=== PATIENT | female | born 1945 | race Caucasian/White ===

== ENCOUNTER 2018-03-26 10:40 | Outpatient (CLI) | payer MEDICARE, SELFPAY ==
[2018-03-26 11:08] LABS: Bilirubin Negative (Negative); Blood Trace-intact (Negative); Clarity Clear; Glucose Negative (Negative); Ketones Negative (Negative); Leukocyte Esterase Trace (Negative); Nitrite Negative (Negative); Urobilinogen 0.2 EU/dL (Up TO 0.2)
[2018-03-26 11:20] LABS: Bacteria Few HPF (Negative); Casts Negative LPF (Negative); Crystals Negative HPF (Negative); Epithelial Cells Few HPF (Negative); Mucus Negative (Negative); RBC 0-2 (0-2)
[2018-03-26 11:21] LABS: C & S Indicated? Yes
[2018-03-26 12:51] LABS: Anion Gap 7.8 mmol/L (3-11); BUN 10 mg/dL (7-18); CO2 31.2 mmol/L (21.0-32.0); CREATININE 0.71 mg/dL (0.55-1.02); Chloride 102 mmol/L (98-107); Potassium 3.5 mmol/L (3.5-5.1); Sodium 141 mmol/L (136-145)
== END 2018-03-26 11:00 ==
PROVIDERS: PCP Nurse Practitioner; Visit Provider General Practice
DX: I10 Essential (primary) hypertension (principal); R10.31 Right lower quadrant pain
CPT/HCPCS: 36415; 80051; 84520; 87077; 81003; 81015; 82565; 87086; 87186

== ENCOUNTER 2018-06-08 11:56 | Outpatient (CLI) | payer MEDICARE, SELFPAY ==
[2018-06-08 12:17] LABS: Bilirubin Negative (Negative); Blood Trace-intact (Negative); Clarity Clear; Glucose Negative (Negative); Ketones Negative (Negative); Leukocyte Esterase Trace (Negative); Nitrite Negative (Negative); Urobilinogen 0.2 EU/dL (Up TO 0.2)
[2018-06-08 12:34] LABS: Bacteria Few HPF (Negative); C & S Indicated? Yes; Casts Negative LPF (Negative); Crystals Negative HPF (Negative); Epithelial Cells Rare HPF (Negative); Mucus Negative (Negative)
== END 2018-06-08 12:16 ==
PROVIDERS: PCP Nurse Practitioner; Visit Provider General Practice
DX: R10.31 Right lower quadrant pain (principal); R31.9 Hematuria, unspecified
CPT/HCPCS: 87077; 71046; 71100; 81003; 81015; 87086; 87186

== ENCOUNTER 2018-06-08 11:58 | Outpatient (CLI) | payer MEDICARE, SELFPAY ==
--- NOTE | 2018-06-08 12:28 | DI.RAD_ITS ---
SYMPTOMS/DIAGNOSIS: TENDER RIGHT 12TH RIB PA AND LATERAL CHEST AND RIGHT RIBS: Comparison is made with chest x-ray dated December,. The heart size is normal. The aorta is tortuous, unchanged. The lungs appear clear. No pneumothorax is seen. A marker was placed over the lower right ribs in the area of the patient's pain. No rib fractures are identified. There are no thoracic compression fractures. A right shoulder prosthesis is again noted. IMPRESSION: No evidence of rib fracture or other acute abnormality.
== END 2018-06-08 12:18 ==
PROVIDERS: PCP Nurse Practitioner; Visit Provider General Practice
DX: R07.81 Pleurodynia (principal); Z96.611 Presence of right artificial shoulder joint
CPT/HCPCS: 71046; 71100

== ENCOUNTER 2018-08-06 12:15 | Outpatient (CLI) | payer MEDICARE, SELFPAY ==
--- NOTE | 2018-08-06 12:15 | DI.RAD_ITS ---
SYMPTOMS/DIAGNOSIS: PAIN RIGHT HIP AND AP PELVIS: The right hip is well maintained. The joint space is unremarkable. The bones are intact and normally mineralized. The soft tissues are unremarkable. IMPRESSION: Negative right hip.
== END 2018-08-06 12:35 ==
PROVIDERS: PCP Nurse Practitioner; Visit Provider General Practice
DX: M25.551 Pain in right hip (principal); R10.2 Pelvic and perineal pain
CPT/HCPCS: 73502

== ENCOUNTER 2018-11-08 17:27 | Outpatient (REF) | payer MEDICARE, SELFPAY ==
--- NOTE | 2018-11-08 14:10 | PAPFT_PTH ---
PATIENT: Mirna Maldonado LOC: [facility] U#:[id number] AGE/SX: 73/F ROOM: RE11/08/[address]: Ngoc Wiseman NP : [id number] BED: DIS: 11/08/2018 SPEC #: [id number] RECD: 11/08/18 18:12 STATUS: KAYLEE RECaesar #: [id number] TORRES: 11/08/18 14:[address]: Ngoc Wiseman NP DEPT: [facility] Cytology RECD BY: Shahida Manzanares ENTERED: 11/08/18 18:13 SP TYPE: PAPFT OTHR DR: Lore Webster Tissues: 1 - CX/ENDOCX FOR PAP SMEARS Procedures: PAP THIN PREP/UVM Screening HPV DNA PROBE Comments: [id number]
== END 2018-11-08 17:47 ==
LOC: LBN 17:27
PROVIDERS: PCP Nurse Practitioner; Visit Provider Nurse Practitioner Women's Health
DX: Z12.4 Encounter for screening for malignant neoplasm of cervix (principal)
CPT/HCPCS: 88142; 87624

== ENCOUNTER 2019-01-04 10:26 | Outpatient (CLI) | payer MEDICARE, SELFPAY ==
[2019-01-04 11:00] LABS: Bilirubin Negative (Negative); Blood Trace-intact (Negative); Clarity Clear (Clear); Glucose Negative (Negative); Ketones Negative (Negative); Leukocyte Esterase Negative (Negative); Nitrite Negative (Negative); Specific Gravity <= 1.005 (1.005-1.025); Urobilinogen 0.2 EU/dL (Up TO 0.2)
[2019-01-04 11:14] LABS: Bacteria Rare HPF (Negative); C & S Indicated? No; Casts Negative LPF (Negative); Crystals Negative HPF (Negative); Epithelial Cells Rare HPF (Negative); Mucus Negative (Negative); RBC 0-2 (0-2); WBC 0-2 HPF (0-5)
== END 2019-01-04 10:46 ==
PROVIDERS: PCP Nurse Practitioner; Visit Provider General Practice
DX: R10.10 Upper abdominal pain, unspecified (principal)
CPT/HCPCS: 81003; 81015

== ENCOUNTER 2019-01-24 00:38 | Outpatient (CLI) | payer MEDICARE, SELFPAY ==
[2019-01-24 08:32] LABS: CREATININE 0.77 mg/dL (0.55-1.02)
--- NOTE | 2019-01-24 09:45 | DI.CT_ITS ---
SYMPTOM/DIAGNOSIS: RT FLANK AND RLQ PAIN CT ABDOMEN AND PELVIS: CT scan of the abdomen and pelvis was performed following the uneventful administration of intravenous and oral contrast material. There is artifact in the abdomen from the patient's posterior spinal rods. Comparison examination is 03/28/11 The lung bases are clear. The liver is normal in size. There are several hypodense lesions seen within the liver. Some of which are too small for further characterization but likely eflect cysts. There are cysts seen in the liver. No suspicious hepatic masses are seen. The portal, superior mesenteric and splenic veins are patent. The gallbladder is negative. There is no biliary ductal dilatation. The pancreas and peripancreatic soft tissues are unremarkable as are the spleen and adrenal glands. The kidneys show normal and symmetric enhancement. No evidence of a solid renal mass or obstruction is present. There is a 3 mm nonobstructing tone in the lower pole of the left kidney. No ureterolithiasis is present. The urinary bladder is intact. The reproductive organs are unremarkable. There is atherosclerosis of the abdominal aorta but no evidence of aneurysmal dilatation. No significant abdominal or pelvic adenopathy, ascites or pneumoperitoneum is present. There is stool throughout the colon suggesting constipation. No evidence of bowel obstruction is seen. A normal appendix is present. No evidence of a bowel inflammatory or infectious process seen. There is a moderate size hiatal hernia. Posterior spinal rods and pedicle screws are again seen at the L3-L4 vertebral level. Moderate degenerative changes are present throughout the lumbar spine. There is fusion of the L5-S1 disc space and an L5 laminectomy. Grade 1 spondylolisthesis of L5 on S1 is noted. IMPRESSION: 1. No evidence of an acute abdomen. 2. Left nephrolithiasis. No evidence of obstructive uropathy
[2019-01-24] MEDS: Breeza Beverage 473 ML BTL PO ×2 (09:51→09:52)
[2019-01-24] MEDS: Omnipaque 350 MG/ML 100 ML BTL IV (09:51)
[2019-01-24] MEDS: Omnipaque 350 MG/ML 50 ML BTL PO (09:52)
== END 2019-01-24 00:58 ==
PROVIDERS: PCP General Practice; Visit Provider General Practice
DX: R10.31 Right lower quadrant pain (principal); N20.0 Calculus of kidney; Z13.89 Encounter for screening for other disorder; K76.89 Other specified diseases of liver; K59.00 Constipation, unspecified; Z96.7 Presence of other bone and tendon implants; Z98.1 Arthrodesis status
CPT/HCPCS: 36415; 74177; 82565; J3490; Q9967

== ENCOUNTER 2019-03-07 01:12 | Outpatient (CLI) | payer MEDICARE, SELFPAY ==
--- NOTE | 2019-03-07 11:45 | DI.MRI_ITS ---
EXAM: MR LUMBAR SPINE WO CLINICAL HISTORY: R FLANK PAIN RADIATING TO GROIN. TECHNIQUE: Multiplanar multisequence MRI was performed. COMPARISON: No exams were available for comparison FINDINGS: MR examination of the lumbosacral spine was performed according to the usual protocol. There are Rd rington rods in place at L4 and L5. There is marked artifact from these metallic devices. There is no significant signal abnormality of the visualized portions of the lumbar spine. There is apparent prominence of the disc osteophyte complex posteriorly at what appears to be L2-3 and L1-2, no definit e central canal spinal stenosis seen but neural impingement is not absolutely excluded particularly a t the L2-3 level where there is significant artifact obscuring detail. IMPRESSION: Limited scans secondary to metallic artifact. Prominence of disc osteophyte complex at L 1 2 and L2- 3, mild central canal spinal stenosis not excluded at L 2 3 but this is a questionable finding due to the scan limitations.
== END 2019-03-07 01:32 ==
PROVIDERS: PCP General Practice; Visit Provider General Practice
DX: R10.31 Right lower quadrant pain (principal); Z96.698 Presence of other orthopedic joint implants
CPT/HCPCS: 72148

== ENCOUNTER 2019-03-28 10:23 | Outpatient (REF) | payer MEDICARE, SELFPAY ==
[2019-03-28 12:10] LABS: HCT 36.6 % (36.0-46.0); HGB 11.4 g/dL (12.0-15.5); Mean Corp. HGB Concentration 31.1 g/dL (32.0-36.0); Mean Corpuscular Hemoglobin 25.6 pg (27.0-33.0); Mean Corpuscular Volume 82.1 fL (80-95); Mean Platelet Volume 9.7 fL (8.0-11.0); Platelet Count 386 x1000/uL (130-400); RBC 4.46 m/cumm (4.00-5.20); RBC Distribution Width 14.6 % (11.7-14.6); White Blood Cell Count 7.04 k/cumm (4.4-10.8)
[2019-03-28 12:31] LABS: ALT 26 U/L (14-59); AST 20 U/L (15-37); Alkaline Phosphatase 79 U/L (46-116); Anion Gap 9.8 mmol/L (3-11); BUN 9 mg/dL (7-18); Bilirubin, Total 0.3 mg/dL (0.2-1.0); CO2 29.2 mmol/L (21.0-32.0); CREATININE 0.78 mg/dL (0.55-1.02); Calcium 9.3 mg/dL (8.5-10.1); Calculated LDL 176 mg/dL; Chloride 101 mmol/L (98-107); Cholesterol 279 mg/dL (50-200); Glucose 92 mg/dL (70-100); HDL Cholesterol 79 mg/dL (40-60); Sodium 140 mmol/L (136-145); Total Protein 7.3 g/dL (6.4-8.2); Triglyceride 124 mg/dL (30-150)
== END 2019-03-28 10:43 ==
LOC: NCHCN 10:23
PROVIDERS: PCP General Practice; Visit Provider Nurse Practitioner
DX: I10 Essential (primary) hypertension (principal); R63.4 Abnormal weight loss; M54.9 Dorsalgia, unspecified
CPT/HCPCS: 80053; 80061; 85027

== ENCOUNTER 2020-04-03 14:34 | Outpatient (REF) | payer MEDICARE, SELFPAY ==
[2020-04-08 04:01] LABS: Patient Race White; SARS-CoV-2 RNA Undetected (Undetected); SARS-CoV-2 Specimen Source Nasal
== END 2020-04-03 14:54 ==
LOC: NCHCN 14:34
PROVIDERS: PCP General Practice; Visit Provider Nurse Practitioner Family
DX: Z11.59 Encounter for screening for other viral diseases (principal)
CPT/HCPCS: U0003

== ENCOUNTER 2020-09-02 09:28 | Outpatient (REF) | payer MEDICARE, SELFPAY ==
[2020-09-02 16:06] LABS: ALT 24 U/L (14-59); AST 22 U/L (15-37); Albumin 3.6 g/dL (3.4-5.0); Alkaline Phosphatase 84 U/L (46-116); Anion Gap 10.5 mmol/L (3-11); BUN 13 mg/dL (7-18); Bilirubin, Total 0.3 mg/dL (0.2-1.0); CO2 28.5 mmol/L (21.0-32.0); CREATININE 0.7 mg/dL (0.55-1.02); Calcium 8.9 mg/dL (8.5-10.1); Calculated LDL 190 mg/dL (<100); Chloride 104 mmol/L (98-107); Cholesterol 279 mg/dL (<200); Glucose 84 mg/dL (74-106); HDL Cholesterol 63 mg/dL (40-60); Potassium 4.3 mmol/L (3.5-5.1); Sodium 143 mmol/L (136-145); TSH 2.65 uIU/mL (0.36-3.74); Total Protein 6.7 g/dL (6.4-8.2); Triglyceride 130 mg/dL (<150)
[2020-09-02 22:29] LABS: T3, Total 158 ng/dL (97-169)
[2020-09-03 04:43] LABS: Vitamin D 25 Total 44.9 ng/mL (30-100)
== END 2020-09-02 09:29 | disposition home or self-care (01) ==
LOC: NCHCN 09:28
PROVIDERS: PCP Nurse Practitioner; Visit Provider Nurse Practitioner
DX: I10 Essential (primary) hypertension (principal); E78.5 Hyperlipidemia, unspecified; F33.2 Major depressive disorder, recurrent severe without psychotic features; M85.88 Other specified disorders of bone density and structure, other site
CPT/HCPCS: 80053; 80061; 82306; 84436; 84443; 84480